=== PATIENT | male | born 1950 | race Caucasian/White ===

== ENCOUNTER → 2017-06-18 13:05 | Outpatient (CLI) | payer MEDICARE, SELFPAY ==
--- NOTE | 2017-06-18 13:26 | CT_ITS ---
EXAM: CT LUNG LOW DOSE WO CONTRAST COMPARISON: None HISTORY: 67-year-old male currently smoking with 50 pack-year smoking history asymptomatic ORDERING PHYSICIAN: Wu Harper MD PATIENT AGE: 67 years TECHNIQUE: The exam was performed on a GE Light Speed [address] scanner using 2.94 mGy CTDI. A low dose helical CT CHEST was performed on a multi-detector scanner The LDCT was performed in a facility that meets the criteria for the screening program. Data regarding this exam was submitted to ACR which is an approved registry. The order for this exam indicates that it came as a result of a lung cancer screening counseling shard decision-making visit that included all the elements required of such a visit including smoking cessation. The radiologist interpreting this exam meets the [facility] criteria for the LDCT lung cancer screening program. The exam is reported using the Lung-RADS classification scale and reported to the ACR registry. NOTE: This study was performed for the specific purposes of lung cancer screening and is not an alternative to diagnostic chest CT. RADIATION DOSE: CTDI vol(CT dose Index-volume) = 2.94mG DLP (Dose Length Product) = 104.10 mGcm FINDINGS: Centrilobular emphysematous change. Hyperinflation with bronchial thickening consistent with obstructive chronic bronchitis. 4 mm nodular opacity right upper lobe nonspecific too small to characterize. Calcified nodes are present in the right hilum. FINDINGS: Coronary artery calcification. Old granulomatous disease. There is gas present in the esophagus which could be related to reflux. IMPRESSION: 1. Lung RADS Category: 2, benign 2. Other findings: Centrilobular emphysema/LTD Coronary artery disease RECOMMENDATIONS: 12 month LDCT screening exam follow-up
== END ==
PROVIDERS: PCP Family Medicine; Visit Provider Family Medicine
DX: Z87.891 Personal history of nicotine dependence (principal); Z12.2 Encounter for screening for malignant neoplasm of respiratory organs

== ENCOUNTER 2017-07-01 08:08 | Day surgery (SDC) | payer MEDICARE, SELFPAY ==
[2017-06-26 15:07] VITALS: BMI 25.0
[2017-07-01] VITALS (12 sets, daily range): BP systolic 111–149; BP diastolic 54–93; PULSE 67–83; RESP 14–18; TEMP 36.3–36.4; O2SAT 93–98
--- NOTE | 2017-07-01 10:25 | HMH.PROC ---
[facility] Procedure Note Procedure Note:: Colonoscopy Procedure Report: Colonoscopy with cold snare polypectomy Endoscopist: Rupert Hampton II, MD Referring physician: Wu Harper MD Date of Procedure: July 01, 2017 Equipment: Olympus 180 variable stiffness pediatric colonoscope Sedation: Fentanyl 100 mg IV/ Versed 7 mg IV Indication: Mr. Navarro is a 67-year-old gentleman who is here for an initial screening colonoscopy. He reports no abdominal pain, weight loss, change in his bowel habits or rectal bleeding. He reports no family history of colon cancer. Procedure: Prior to the procedure, a history and physical exam was performed, and patient's medications and allergies were reviewed. The risks, benefits and alternatives of the sedation and procedure were discussed with the patient. All questions were answered and informed consent was obtained. The patient was brought to the procedure room. Patient identification and proposed procedure were verified by the physician and the nurse. The patient was placed in a left lateral decubitus position and the scope was passed under direct vision. Throughout the procedure, the patient's blood pressure, pulse, and oxygen saturations were monitored continuously. The colonoscopy was accomplished without difficulty. The patient tolerated the procedure well. Findings: On digital rectal examination there was normal rectal tone. There were no external hemorrhoids. The prostate was moderately firm with asymmetry. The colonoscope was introduced through the anal canal to the rectum and advanced to the cecum. The ileocecal valve and appendiceal orifice were identified. The scope was advanced a short distance into the ileum which appeared grossly normal. The scope was then withdrawn into the colon. There were 5 colon polyps identified in the cecum ?1, rectosigmoid ?3, rectum ?1. These ranged in size from 3-7 mm and were all removed via cold snare polypectomy. There were scattered diverticuli throughout the colon but more predominantly in the descending and sigmoid colon (LEFT colon). The rectum itself was normal. Upon retroflexion within the rectum there were grade 1 internal hemorrhoids. Impression: 1. Diminutive colonic polyps ?5 2. Extensive pandiverticulosis 3. Grade 1 internal hemorrhoids 4. Firm asymmetric prostate Plan: I will follow up the polyp pathology and recommend repeat colonoscopy again in 5 years based upon the polyp histology. I would encourage fiber supplementation on a long-term daily maintenance basis. I would recommend PSA testing if this has not been performed recently.
--- NOTE | 2017-07-01 12:48 | SUR.PHASEII ---
pt iv discontinued tip intact for discharge home
[2017-07-01 13:06] LABS: Prostate Specific Ag Screen 2.4 ng/mL (0.0-4.0)
== END 2017-07-01 11:52 | disposition home or self-care (01) ==
LOC: OUTP 08:10
PROVIDERS: PCP Family Medicine; Visit Provider Internal Medicine Gastroenterology
PROC: 0DJD8ZZ Inspection of Lower Intestinal Tract, Via Natural or Artificial Opening Endoscopic (ICD-10-PCS; CPT 45378; principal; 2017-07-01 09:30)
DX: D12.0 Benign neoplasm of cecum (principal); D12.7 Benign neoplasm of rectosigmoid junction; K57.30 Diverticulosis of large intestine without perforation or abscess without bleeding; K64.0 First degree hemorrhoids; Z12.5 Encounter for screening for malignant neoplasm of prostate
CPT/HCPCS: 45380; 36415; 88305; 99152; G0103

== ENCOUNTER → 2018-07-23 13:04 | Outpatient (CLI) | payer MEDICARE, SELFPAY ==
--- NOTE | 2018-07-23 13:11 | CT_ITS ---
CT lung screening EXAM: CT LUNG LOW DOSE WO CONTRAST HISTORY: 50 pack-year smoking history. Asymptomatic for lung cancer ITS.REASON: H/O NICOTINE DEPENDENCE ORDERING PHYSICIAN: Wu Harper MD PATIENT AGE: 68 years COMPARISON: 06/18/2017 TECHNIQUE: The exam was performed on a GE Light Speed [address] scanner using 2.94 mGy CTDI. A low dose helical CT CHEST was performed on a multi-detector scanner. All CT scans at the facility use one or more dose reduction, viz: automated exposure control, ma/kV adjustment per patient size (including targeted exams where dose is matched to indication, i.e. head), or iterative reconstruction technique. The LDCT was performed in a facility that meets the criteria for the screening program. Data regarding this exam was submitted to ACR which is an approved registry. The order for this exam indicates that it came as a result of a lung cancer screening counseling shard decision-making visit that included all the elements required of such a visit including smoking cessation. The radiologist interpreting this exam meets the CMS criteria for the LDCT lung cancer screening program. The exam is reported using the Lung-RADS classification scale and reported to the ACR registry. NOTE: This study was performed for the specific purposes of lung cancer screening and is not an alternative to diagnostic chest CT. RADIATION DOSE: CTDI vol(CT dose Index-volume) = 2.94mG DLP (Dose Length Product) = 111.90 mGcm FINDINGS: There is mild motion artifact. Hyperinflation with attenuation of the peripheral pulmonary vessels consistent with COPD with mild centrilobular emphysema. There is some nodularity in the right major fissure superiorly. Mild thickening of the left major fissure inferiorly accentuated by motion artifact. Old granulomatous disease. Coronary artery calcifications. No change 4 mm noncalcified nodule right upper lobe. IMPRESSION: 1. Lung RADS Category: 2, benign 2. Other findings: Coronary artery calcifications, COPD, centrilobular emphysema RECOMMENDATIONS: 12 month LDCT follow-up
== END ==
PROVIDERS: PCP Family Medicine; Visit Provider Family Medicine
DX: Z12.2 Encounter for screening for malignant neoplasm of respiratory organs (principal); Z87.891 Personal history of nicotine dependence

== ENCOUNTER → 2019-07-24 08:02 | Outpatient (CLI) | payer MEDICARE, SELFPAY ==
--- NOTE | 2019-07-24 08:07 | CT_ITS ---
PROCEDURE: CT LUNG SCREENING CLINICAL INDICATION: H/O NICOTINE DEPENDENCE Fifty-three pack-year smoking history, asymptomatic for lung cancer COMPARISON: LUNGSCREEN CT lung screening from 06/18/[address] lung screening from 07/23/2018 TECHNIQUE: The exam was performed on a GE Light Speed [address] scanner using 2.90 mGy CTDI. A low dose helical CT CHEST was performed on a multi-detector scanner. All CT scans at the facility use one or more dose reduction, viz: automated exposure control, ma/kV adjustment per patient size (including targeted exams where dose is matched to indication, i.e. head), or iterative reconstruction technique. The LDCT was performed in a facility that meets the criteria for the screening program. Data regarding this exam was submitted to ACR which is an approved registry. The order for this exam indicates that it came as a result of a lung cancer screening counseling shard decision-making visit that included all the elements required of such a visit including smoking cessation. The radiologist interpreting this exam meets the CMS criteria for the LDCT lung cancer screening program. The exam is reported using the Lung-RADS classification scale and reported to the ACR registry. NOTE: This study was performed for the specific purposes of lung cancer screening and is not an alternative to diagnostic chest CT. RADIATION DOSE: CTDI vol(CT dose Index-volume) = 2.90mG DLP (Dose Length Product) = 107.07 mGcm FINDINGS: COPD changes. There is mild degree of motion artifact. 4 mm noncalcified nodule right upper lobe not significantly changed. No suspicious nodules evident. There is mild amount of gas within nondistended esophagus which could be seen with reflux. OTHER FINDINGS: Coronary artery calcifications. Aortic root calcifications. There is mild ectasia of the ascending aorta at 3.9 cm IMPRESSION: Lung rads category 1, negative Recommend continued annual LD CT screening Dictated by: Nam Reynaga MD 08/04/2019 06:50 Electronically signed by Nam Reynaga MD in [place] 08/04/2019 06:50
== END ==
PROVIDERS: PCP Family Medicine; Visit Provider Family Medicine
DX: Z87.891 Personal history of nicotine dependence (principal); Z12.2 Encounter for screening for malignant neoplasm of respiratory organs

== ENCOUNTER → 2020-09-23 10:12 | Outpatient (CLI) | payer MEDICARE, SELFPAY ==
--- NOTE | 2020-09-23 10:14 | CT_ITS ---
PROCEDURE: CT LUNG SCREENING CLINICAL INDICATION: H/O NICOTINE DEPENDENCE Current smoker 54 pack year smoking history Copd COMPARISON: CT CT LUNG SCREENING from 07/24/2019 TECHNIQUE: The exam was performed on a GE Light Speed [address] scanner using 2.90 mGy CTDI. A low dose helical CT CHEST was performed on a multi-detector scanner. All CT scans at the facility use one or more dose reduction, viz: automated exposure control, ma/kV adjustment per patient size (including targeted exams where dose is matched to indication, i.e. head), or iterative reconstruction technique. The LDCT was performed in a facility that meets the criteria for the screening program. Data regarding this exam was submitted to ACR which is an approved registry. The order for this exam indicates that it came as a result of a lung cancer screening counseling shard decision-making visit that included all the elements required of such a visit including smoking cessation. The radiologist interpreting this exam meets the CMS criteria for the LDCT lung cancer screening program. The exam is reported using the Lung-RADS classification scale and reported to the ACR registry. NOTE: This study was performed for the specific purposes of lung cancer screening and is not an alternative to diagnostic chest CT. RADIATION DOSE: CTDI vol(CT dose Index-volume) = 2.90mG DLP (Dose Length Product) = 103.16 mGcm FINDINGS: COPD changes with mild centrilobular emphysema and with mild haziness of the bronchovascular markings consistent with smoking related lung disease. Minimal nodularity noted along the major fissure superiorly on the right unchanged with mild fissural thickening. Mild scarring or atelectatic change in the lingula. Fissural thickening in the left lower lobe with mild scarring in the left lung base medially. No suspicious nodules identified. OTHER FINDINGS: There is tortuosity of the thoracic aorta. There is mild prominence of the left atrial appendage. Coronary artery calcifications and aortic root calcifications are noted. IMPRESSION: Lung-RADS Category 2 Benign Appearance or Behavior Follow-up: Continue annual screening with LDCT in 12 months Dictated by: Nam Reynaga MD 09/25/2020 09:56 Nam Reynaga MD in [place] 09/25/2020 09:56
== END ==
PROVIDERS: PCP Family Medicine; Visit Provider Family Medicine
DX: Z87.891 Personal history of nicotine dependence (principal); Z12.2 Encounter for screening for malignant neoplasm of respiratory organs
CPT/HCPCS: 71271

== ENCOUNTER → 2021-10-16 08:22 | Outpatient (CLI) | payer MEDICARE, SELFPAY ==
--- NOTE | 2021-10-16 08:25 | CT_ITS ---
FINAL REPORT TECHNIQUE: Axial images were obtained from the lung apex to the mid abdomen by computed tomography. Low-dose protocol was utilized. CLINICAL HISTORY: smoker, 1 ppd x 50 years copd, emphysema, exposed to 2nd hand smoke. COMPARISON: 09/23/2020 FINDINGS: CHEST CT LOW DOSE CTDI vol (mGy): 2.90 DLP (mGy-cm): 99.77 There is no axillary adenopathy. There is no hilar or mediastinal adenopathy. The heart is normal in size. There is no pericardial or pleural effusion. There is moderate vascular calcification. Mild scarring and emphysema are identified. There are several small nodules in the right upper lobe measuring up to 3 mm, stable since previous. There is a 6 mm nodule at the major fissure which is stable. There is new, left lower lobe collapse of uncertain etiology. Limited images of the upper abdomen reveal a questionable partially imaged gallstone.. IMPRESSION: Stable nodules in the right upper lobe and at the major fissure. New, left lower lobe collapse of uncertain etiology, endobronchial lesion is not excluded. Recommend correlation with bronchoscopy. Lung RADS category 2S. Recommend 12 month follow-up low-dose chest CT. Reviewed, Interpreted and Dictated by Dieter Bermeo III, MD Transcribed by Berta Vega Authenticated by Dieter Bermeo III, MD on 10/16/2021 09:07:[address] [facility]
== END ==
PROVIDERS: PCP Family Medicine; Visit Provider Family Medicine
DX: Z87.891 Personal history of nicotine dependence (principal); Z12.2 Encounter for screening for malignant neoplasm of respiratory organs
CPT/HCPCS: 71271

== ENCOUNTER → 2021-12-13 12:39 | Outpatient (CLI) | payer MEDICARE, SELFPAY ==
[2021-12-13 13:25] VITALS: PULSE 74; PULSE 79
== END ==
PROVIDERS: PCP Family Medicine; Visit Provider Internal Medicine Pulmonary Disease
DX: R06.09 Other forms of dyspnea (principal)
CPT/HCPCS: 94060; 94618; 94640; 94727; 94729

== ENCOUNTER → 2021-12-30 11:05 | Outpatient (CLI) | payer MEDICARE, SELFPAY | PROVIDERS: PCP Family Medicine; Visit Provider Internal Medicine Pulmonary Disease | DX: Z01.812 Encounter for preprocedural laboratory examination (principal); Z20.822 Contact with and (suspected) exposure to COVID-19; R91.1 Solitary pulmonary nodule | CPT/HCPCS: C9803; U0003; U0005 ==

== ENCOUNTER 2022-01-01 07:53 | Day surgery (SDC) | payer MEDICARE, OTHER, SELFPAY ==
[2022-01-01] VITALS (9 sets, daily range): BP systolic 103–167; BP diastolic 70–93; PULSE 47–81; RESP 15–18; TEMP 36.2–36.4; O2SAT 92–97; BMI 24.9
--- NOTE | 2022-01-01 08:58 | P.PN_ITS ---
[facility] Anesthesia Checklist - Structural Data Admitted From: Home Planned Operative Procedure/s: bronchoscopy Consent for Planned Operative Procedure(s) Verified: Yes - Additional verifications Anesthesia Reactions: No Hx Blood Transfusions: No Blood Transfusion Reaction: No - Airway Assessment C-Spine Mobility Assessed: Yes TMJ Mobility Assessed: Yes Dentition: Good Dentition - Neurological Assessment Level of Consciousness: Awake, Alert, Appropriate - Anesthesia Plan Anesthesia Risk discussed: Yes Anesthesia Plan: Verified ASA Class: II Anesthesia Type: General [facility] History I have reviewed the patient's past medical history: Yes Medical History: Reports:: Hypertension Denies:: Cancer, Diabetes Mellitus Type 1, Diabetes Mellitus Type 2, Internal Pacemaker, Lung Disease, MRSA, Seizures *Have you ever received a pneumonia vaccine?: No *Have you received a flu vaccine this season?: Yes Other Medical History: Denies: Blood Transfusion Reaction Anesthesia experience/problems:: none Other Surgeries: No: Pacemaker Amputation: No Fractures: No - *Social History Last grade of school completed: 11th or 12th Smoking Status: Current every day smoker Tobacco Type: cigarettes # Packs/Day (cigarettes): 1 Alcohol Intake: never Substance Use Type: denies use *Occupational Status:: retired Housing: house Household Members: spouse *Travel in the last 8 weeks: Inside the [facility] Family Hx:: No significant family history
--- NOTE | 2022-01-01 10:15 | XR_ITS ---
FINAL REPORT CLINICAL HISTORY: BRONCHOSCOPY fluoro time 1:50 FINDINGS: Fluoroscopic guidance was provided for the operating services. A single spot film was provided. 1 minute 50 seconds of fluoroscopy time was utilized during bronchoscopy. IMPRESSION: 1 minute 50 seconds of fluoroscopy time. Reviewed, Interpreted and Dictated by Dieter Bermeo III, MD Transcribed by Srinivas Maria Authenticated and [facility]
--- NOTE | 2022-01-01 10:24 | HMH.ANESI ---
[facility] Anesthesia Record Part I Intake, IV Amount: 800 Estimated blood loss (mL): 0 Urine output (mL): 0 Blood Pressure: 103/73 SaO2: 97 Pulse Rate: 78 Respiratory Rate: 16 Temperature: 97.5 F Patient is:: Drowsy, Stable Stable to PACU at:: 10:20
--- NOTE | 2022-01-01 13:07 | HMH.BRONCH ---
- Procedure: Date: 01/01/22 Patient Date of :: 1950 Procedure Performed:: Bronchoscopy airway examination, bronchoalveolar lavage and transbronchial lung biopsy Indications:: Left lower lobe collapse Performing Provider:: Blaise Harrington MD Referring Provider:: Dr. Garrett Sedation:: General anesthesia Procedure:: Bronchoscopy airway examination, bronchoalveolar lavage and transbronchial lung biopsy: A clean diagnostic bronchoscopy advanced the ET tube and airways were examined up to segmental bronchi. No obvious endobronchial lesions noted however diffuse airway erythema noted. No endobronchial lesions noted on the left lower lobe bronchus. Airways appear relatively patent. Bronchoalveolar lavage was performed in the left lower lobe with a total of instillation of 60 cc normal cc with a return of 30 cc back. Lavage fluid were sent for bacterial fungal AFB stain culture along with cytopathology. Transbronchial biopsies were also performed in the left lower lobe with a total of 7 biopsies performed, 5 were sent in formalin for cytopathologic examination, the remaining 2 biopsies were sent one each in normal saline filled specimen cups for AFB fungal bacterial stain and culture. Special request was made for cytopathologist to evaluate for fungal and AFB staining in both transbronchial biopsy and bronchoalveolar lavage specimens. Patient tolerated the procedure well. Estimated blood loss 5 cc Follow the patient in pulmonary clinic in 7 days. Findings:: Please see the procedure note Recommendations:: Please see the procedure note Complications:: None Estimated blood obtained (mL): 5
--- NOTE | 2022-01-02 16:37 | HMH.ANESII ---
[facility] Anesthesia Record Part II Discharge Time: 10:40 Destination: Surgical Day Care (OP Surgery) PACU nurse assessment reviewed?: Yes Patient Condition:: Good Anesthesia Complications:: None Swallowing reflex intact?: Yes Cyanosis?: No Blood Pressure: 133/88 Pulse Rate: 81 Temperature: 97.5 F Mental Status: Alert & Oriented Pain level:: 0 Nausea and/or vomitting:: None Intake, IV Amount: 0
[2022-01-02 16:38] VITALS: BP 133/88; PULSE 81; TEMP 36.4
== END 2022-01-01 11:30 | disposition home or self-care (01) ==
PROVIDERS: PCP Family Medicine; Visit Provider Internal Medicine Pulmonary Disease
PROC: (CPT 31624; principal; 2022-01-01 09:15)
DX: J98.11 Atelectasis (principal); F17.210 Nicotine dependence, cigarettes, uncomplicated; R91.8 Other nonspecific abnormal finding of lung field; I10 Essential (primary) hypertension; Z79.899 Other long term (current) drug therapy
CPT/HCPCS: 31624; 31628; 71045; 76000; 87070; 87077; 87102; 87116; 87186; 87205; 87206; 88112; 88305; 88312; 89051; J2405

== ENCOUNTER → 2022-03-06 15:15 | Outpatient (CLI) | payer MEDICARE, SELFPAY ==
--- NOTE | 2022-03-06 15:22 | CT_ITS ---
FINAL REPORT TECHNIQUE: Axial images through the abdomen and pelvis were performed without contrast. This study was performed with techniques to keep radiation doses as low as reasonably achievable, (ALARA). Individualized dose reduction techniques using automated exposure control or adjustment of mA and/or kV according to the patient's size were employed. CLINICAL HISTORY: RENAL COLIC FINDINGS: Abdomen: There is scarring or atelectasis in the lingula. The liver parenchyma is homogeneous. There are gallstones in the dependent portion of the gallbladder. The spleen, pancreas, and adrenal are unremarkable. There is stranding perinephric fat bilaterally, left asymmetrically greater than right. There is extensive descending and sigmoid colon diverticulosis. The aorta is ectatic at 3.2 cm. Pelvis: The urinary bladder is unremarkable. The appendix is not visualized. There is no pelvic mass or inflammation. IMPRESSION: Stranding of the perinephric fat of uncertain significance. In the appropriate setting pyelonephritis would be a consideration. An infused CT may be of value. Cholelithiasis. Ectasia of the abdominal aorta. Reviewed, Interpreted and Dictated by Manjit Berry MD Transcribed by Srinivas Maria Authenticated and [facility]
== END ==
PROVIDERS: PCP Family Medicine; Visit Provider Family Medicine
DX: N23 Unspecified renal colic (principal)
CPT/HCPCS: 74176

== ENCOUNTER → 2022-10-30 12:51 | Outpatient (CLI) | payer MEDICARE, SELFPAY ==
[2022-10-30 13:50] VITALS: PULSE 58; PULSE 62
--- NOTE | 2022-10-30 14:29 | CT_ITS ---
FINAL REPORT TECHNIQUE: Axial images were obtained from the lung apex to the mid abdomen by computed tomography. This study was performed with techniques to keep radiation doses as low as reasonably achievable (ALARA). Individualized dose reduction techniques using automated exposure control or adjustment of mA and/or kV according to the patient's size were employed. CLINICAL HISTORY: SCREENING CURRENT SMOKER 1PPD X60 YEARS COMPARISON: 10/16/2021 FINDINGS: CHEST CT LOW DOSE CTDI vol (mGy): 2.90 DLP (mGy-cm): 97.42 There is no axillary adenopathy. There is no hilar or mediastinal adenopathy. There is moderate coronary artery calcification. The heart is normal in size. There is no pericardial or pleural effusion. Note is made of mild emphysema. There are small nodules in the right upper lobe which are stable. There is partially improved left lower lobe collapse but with persistent partial collapse. There is a 6 mm nodule in the right major fissure which is stable. Limited images of the upper abdomen are unremarkable. IMPRESSION: Stable nodules as detailed above. Persistent partial collapse of the left lower lobe. Lung RADS category 1 S. Recommend 12 month follow-up low-dose chest CT. Reviewed, Interpreted and Dictated by Dieter Bermeo III, MD Transcribed by Berta Vega Authenticated and [facility]
== END ==
PROVIDERS: PCP Family Medicine; Visit Provider Internal Medicine Pulmonary Disease
DX: Z87.891 Personal history of nicotine dependence (principal); Z12.2 Encounter for screening for malignant neoplasm of respiratory organs
CPT/HCPCS: 71271; 94060; 94618; 94640; 94727; 94729

== ENCOUNTER 2023-09-25 10:21 | Day surgery (SDC) | payer MEDICARE, SELFPAY ==
[2023-09-24 11:51] VITALS: BMI 25.0
[2023-09-25 10:40] VITALS: BP 138/84; PULSE 72; RESP 18; TEMP 36.4; O2SAT 96
[2023-09-25] MEDS: LACTATED RINGERS 1000ML 1,000 ML 100 ML IV (10:42)
--- NOTE | 2023-09-25 11:56 | P.PNANES_ITS ---
[facility] Disclaimer: The information contained in this section may have been updated after the patient was seen, as this information can be updated by other users. Medical History Multiple pulmonary nodules Tobacco abuse disorder Tobacco abuse counseling Restrictive lung disease COPD (chronic obstructive pulmonary disease) Dyspnea on exertion Smoking greater than 30 pack years Lung collapse Endobronchial mass Surgical History Hx of colonoscopy No history of previous surgery Family History Other No significant family history Social History Smoking Status: Current every day smoker tobacco type: cigarettes packs per day: 1 alcohol intake: never substance use type: denies use current occupational status: retired Travel in the last 8 weeks: None household members: spouse housing: house current occupational exposures/hazards: No caffeine: Yes [facility] Anesthesia Checklist Patient Identification Patient Identification: Arm Band, Family and Verbal (Name & ) Structural Data Admitted From: Home Planned Operative Procedure/s: Colonoscopy Consent for Planned Operative Procedure(s) Verified: Yes Verified Documents: Surgical Consent and History and Physical NPO Status Verified Time NPO: 06:30 Chart Verification Results Verified: CBC, BMP and Chest Xray Additional verifications Patient : No Anesthesia Reactions: No Hx Blood Transfusions: No Blood Transfusion Reaction: No Cardiovascular Assessment Heart Sounds: S1 & S2 Pulse Rhythm: Irregular Peripheral Edema: No Airway Assessment Mallampati Score:: Class II C-Spine Mobility Assessed: Yes (FROM) TMJ Mobility Assessed: Yes Dentition: Poor Dentition (Nothing loose per pt.) Neurological Assessment Level of Consciousness: Awake, Alert, Appropriate and Follows Commands Hx Seizures: No Numbness or tingling in extremities: No Anesthesia Plan Anesthesia Risk discussed: Yes Anesthesia Plan: Verified ASA Class: III Anesthesia Type: MAC
[2023-09-25 12:02] VITALS: O2SAT 95
[2023-09-25 12:20] VITALS: BP 117/68; PULSE 66; RESP 18; O2SAT 98
[2023-09-25 12:23] VITALS: BP 85/42; PULSE 72; RESP 18; TEMP 36.1; O2SAT 94
--- NOTE | 2023-09-25 12:23 | HMH.SCOPE ---
Procedure: Date: 09/25/23 Patient Date of :: 1950 Procedure Performed:: Colonoscopy Indications:: The patient is a 73-year-old who presents for surveillance colonoscopy for a history of polyps in the past. Performing Provider:: Alberto Padilla MD Referring Provider:: Wu Harper MD Sedation:: See RN records Procedure:: After placing the patient in the left lateral decubitus position, the colonoscopy was gently inserted into the rectum and under direct visualization advanced to the cecum which was identified by transillumination in the right lower quadrant, identification of the ileocecal valve, appendiceal orifice, and cecal strap. Color, texture, mucosa, and anatomy of the colon were carefully examined with the scope. The colonoscopy was somewhat difficult secondary to the patient having repetitive coughing during the colonoscopy procedure. Findings:: The quality of the bowel preparation was good. There was a small sessile polyp (4 to 6 mm) in the ascending colon. The polyp was removed by cold snare polypectomy. The polyp was retrieved. There were 3 diminutive polyps in the upper rectum. The polyps were removed by cold forceps. There was extensive colonic diverticulosis throughout the entire colon, largest diverticula were noted to be in the sigmoid colon. On retroflexion view of the rectum internal hemorrhoids were seen. Impression: Polyp of the ascending colon Polyps of the rectum Extensive diverticulosis Recommendations:: Await pathology results Higher fiber diet Repeat colonoscopy in 3 years Complications:: None Estimated blood obtained (mL): 0 Colonoscopy Component Colonoscopy Component Was a colonoscopy performed during today's procedure?: Yes Recommended follow up colonoscopy of at least 10 years?: Yes
[2023-09-25 12:32] VITALS: BP 98/65; PULSE 69; RESP 20; O2SAT 98
[2023-09-25 12:42] VITALS: BP 115/70; PULSE 68; RESP 18; O2SAT 98
== END 2023-09-25 13:25 | disposition home or self-care (01) ==
PROVIDERS: PCP Family Medicine; Visit Provider Internal Medicine
PROC: (CPT 45380; principal; 2023-09-25 11:30)
DX: Z12.11 Encounter for screening for malignant neoplasm of colon (principal); Z86.010 Personal history of colon polyps; K57.30 Diverticulosis of large intestine without perforation or abscess without bleeding; K64.8 Other hemorrhoids; D12.2 Benign neoplasm of ascending colon; K62.1 Rectal polyp
CPT/HCPCS: 45380; 45385; 88305

== ENCOUNTER 2023-11-12 12:40 | Outpatient (CLI) | payer MEDICARE, SELFPAY ==
[2023-11-12 14:00] VITALS: PULSE 72; PULSE 78
[2023-11-12] MEDS: ALBUTEROL 0.083% 2.5 MG/3 ML NEB IH (14:00)
--- NOTE | 2023-11-12 14:36 | CT_ITS ---
FINAL REPORT TECHNIQUE: Thin section axial images were obtained from the lung apices to the upper abdomen by computed tomography. Reformatted images were obtained and reviewed. This study was performed with techniques to keep radiation doses al low as reasonably achievable (ALARA). Individualized dose reduction techniques using automated exposure control or adjustment of mA and/or kV according to the patient's size were employed. CLINICAL HISTORY: lung cancer screening smoker 50 years, 1ppd, hx copd COMPARISON: 10/30/2022 FINDINGS: CHEST CT LOW DOSE 74-year-old male, current smoker, 15-mtvv-zthv history. CTDI vol (mGy): 2.9 DLP (mGy-cm): 104.46 There is no axillary adenopathy. There is no mediastinal or hilar mass or adenopathy. The heart is normal in size. There is no pericardial or pleural effusion. There is mild emphysema and mild pulmonary scarring. Lung window images demonstrate several small right upper lobe nodules, with a chemical sales representative example being a 3 mm nodule seen on image #36 of series 4. There is also a 6 mm nodule in the right major fissure, which is also stable. Persistent partial collapse of the left lower lobe noted on the prior exam remains present as well. Limited images of the upper abdomen reveal a small gallstone.. IMPRESSION: Lung-RADS category 1 S, the S designation for the persistent partial collapse of the left lower lobe.. Recommend 12 month follow up low dose chest CT. Reviewed, Interpreted and Dictated by Manjit Berry MD Transcribed by Loly Marcelino Authenticated and [facility]
== END 2023-11-12 23:59 | disposition home or self-care (01) ==
LOC: RT 12:40
PROVIDERS: PCP Family Medicine; Visit Provider Internal Medicine Pulmonary Disease
DX: R06.09 Other forms of dyspnea (principal); F17.210 Nicotine dependence, cigarettes, uncomplicated
CPT/HCPCS: 71271; 94060; 94618; 94640; 94726; 94729

== ENCOUNTER 2024-04-08 07:42 | Outpatient (CLI) | payer MEDICARE, SELFPAY ==
--- NOTE | 2024-04-08 07:44 | US_ITS ---
PROCEDURE INFORMATION: Exam: US Limited Retroperitoneal, Aorta. Exam date and time: 04/08/2024 8:10 AM Age: 73 years old Clinical indication: Abnormal findings; Abnormal radiologic finding of the abdomen; Radiologic exam and body structure: CT showed ectasia of abd aorta; Additional info: Abnormal aortic ectasia TECHNIQUE: Imaging protocol: Real-time ultrasound of the retroperitoneum with image documentation. Exam focused on the aorta. COMPARISON: CT ABDOMEN PELVIS WO CON 03/06/2022 3:32 PM FINDINGS: Aorta: Aortic aneurysm maximal diameter of 3.4 cm. Maximal diameter of the proximal aorta 2.6 cm, mid/distal aorta 3.4 cm, Right and left common iliac arteries nonaneurysmal. Atheromatous disease/vascular calcifications. Common iliac arteries: See Aorta finding. IMPRESSION: Aortic aneurysm maximal diameter of 3.4 cm. Previously noted on CT dated 03-06-22 at which time it measured approximately 3.3 cm.
== END 2024-04-08 23:59 | disposition home or self-care (01) ==
LOC: RAD 07:42
PROVIDERS: PCP Family Medicine; Visit Provider Family Medicine
DX: I77.811 Abdominal aortic ectasia (principal)
CPT/HCPCS: 76770

== ENCOUNTER 2024-11-10 15:08 | Outpatient (CLI) | payer MEDICARE, SELFPAY ==
--- NOTE | 2024-11-10 15:11 | CT_ITS ---
FINAL REPORT TECHNIQUE: Thin section axial images were obtained from the lung apices to the upper abdomen by computed tomography. Reformatted images were obtained and reviewed. This study was performed with techniques to keep radiation doses al low as reasonably achievable (ALARA). Individualized dose reduction techniques using automated exposure control or adjustment of mA and/or kV according to the patient's size were employed. CLINICAL HISTORY: lung cancer screening current smoker 1/2 ppd x 50 years COMPARISON: 11/12/2023 FINDINGS: CHEST CT LOW DOSE 75-year-old male, current smoker, 77-weco-ygej history CTDI vol (mGy): 2.90 DLP (mGy-cm): 109.94 There is no axillary adenopathy. There is no mediastinal or hilar mass or adenopathy. The heart is normal in size. There is no pericardial or pleural effusion. Lung window images demonstrate a stable 3 mm nodule best seen on image #34 of series 4. There is a 5 mm nodule in the right major fissure, also unchanged. This is best seen on image #39 of series 4. The partial collapse of the left lower lobe has essentially resolved, with minimal linear scarring present. Limited images of the upper abdomen demonstrate gallstones in the gallbladder. IMPRESSION: Lung-RADS category 2. Recommend 12 month follow up low dose chest CT. Reviewed, Interpreted and Dictated by Manjit Berry MD Transcribed by Loly Marcelino Authenticated and [facility]
== END 2024-11-10 23:59 | disposition home or self-care (01) ==
LOC: RAD 15:09
PROVIDERS: PCP Family Medicine; Visit Provider Internal Medicine Pulmonary Disease
DX: Z12.2 Encounter for screening for malignant neoplasm of respiratory organs (principal); F17.210 Nicotine dependence, cigarettes, uncomplicated
CPT/HCPCS: 71271